=== PATIENT | female | born 1975 | race Caucasian/White ===

== ENCOUNTER 2025-03-02 05:15 | Observation (INO) | payer OTHER, SELFPAY ==
[2025-03-02] VITALS (26 sets, daily range): BP systolic 124–174; BP diastolic 78–106; PULSE 85–161; RESP 14–32; TEMP 36.6–37.1; O2SAT 92–99; BMI 23.6
--- NOTE | ~2025-03-02 | XR_ITS ---
EXAMINATION: XR chest 1V portable 03/02/2025 07:50 INDICATION: Cough PROCEDURE: AP portable chest COMPARISON: No prior studies for comparison. FINDINGS: The lungs are clear. The cardiomediastinal silhouette is within normal limits. There are no pleural effusions. There is no pneumothorax suspected. IMPRESSION: 1: NO ACUTE CARDIOPULMONARY DISEASE. Reviewed, dictated and finalized at location B.
--- NOTE | ~2025-03-02 | CT_ITS ---
CT HEAD NON-CONTRAST Clinical History: AMS Comparison: None Technique: Unenhanced axial images skull base to vertex Coronal, sagittal reformats CT images acquired with automatic exposure control for dose reduction DLP: 1286 mGy-cm Findings: Extensive motion/streak artifact. Sulci, ventricles: Unremarkable. No intracerebral hemorrhage. No evidence acute territorial infarct. No mass effect, midline shift. Bony calvarium intact. Visualized paranasal sinuses: Clear. Mastoid air cells: Clear. IMPRESSION: 1. No acute intracranial findings. Reviewed, dictated and finalized at location R.
--- NOTE | 2025-03-02 05:23 | ED.GENADULT ---
HPI - General Adult General Chief complaint: Unspecified Stated complaint: anxiety Source: family and EMS Mode of arrival: EMS History of Present Illness HPI narrative: This is a 50-year-old female with recent history of anxiety hypertension, CHF who presents to the ED for shortness of breath and shaking. Per EMS, they were called shortness of breath. On arrival, patient shaking and unable to speak. They were able to sales coach her tachypnea down to a normal rate. Her vitals were stable EN route. Patient reports that she felt fine when she went to sleep but woke with a headache and knew something was wrong.History otherwise limited at this time as patient is unable to speak clearly. Related Data Home Medications ?Medication ?Instructions ?Recorded ?Confirmed ?Last Taken ?Type aspirin 81 mg chewable tablet 1 tablet PO DAILY 03/02/25 03/02/25 Unknown History atorvastatin 80 mg tablet 80 mg PO HS 03/02/25 03/02/25 Unknown History carvedilol 6.25 mg tablet 6.25 mg PO BID 03/02/25 03/02/25 Unknown History empagliflozin 10 mg tablet 10 mg PO DAILY 03/02/25 03/02/25 Unknown History (Jardiance) escitalopram oxalate 10 mg tablet 10 mg PO DAILY 03/02/25 03/02/25 Unknown History folic acid 1 mg tablet 1 mg PO DAILY 03/02/25 03/02/25 Unknown History furosemide 40 mg tablet 40 mg PO DAILY 03/02/25 03/02/25 Unknown History losartan 50 mg tablet 50 mg PO DAILY 03/02/25 03/02/25 Unknown History metoprolol succinate 25 mg 25 mg PO DAILY 03/02/25 03/02/25 Unknown History tablet,extended release 24 hr spironolactone 25 mg tablet 25 mg PO DAILY 03/02/25 03/02/25 Unknown History thiamine mononitrate (vit B1) 100 100 mg PO DAILY 03/02/25 03/02/25 Unknown History mg tablet (Vitamin B-1 (mononitrate)) Allergies Allergy/AdvReac Type Severity Reaction Status Date / Time No Known Allergies Allergy Verified 03/02/25 09:26 Review of Systems Review of Systems: ROS unobtainable: Yes unobtainable due to medical condition PMFSH Past Medical History Medical History (Updated 03/02/25 @ 20:16 by Fei Romero MD) Hx of arterial ischemic stroke Alcoholism Depression Seizure at age 15yo Hyperlipidemia HTN (hypertension), benign CHF (congestive heart failure) Systolic CHF CAD (coronary artery disease) [place] in October 2024 Surgical History Surgical History (Updated 03/02/25 @ 15:16 by Orlin Jhaveri MD) H/O tubal ligation delivery delivered x3 Family History Family History (Updated 03/02/25 @ 15:16 by Orlin Jhaveri MD) Mother Cerebrovascular accident Social History Social History (Updated 03/02/25 @ 15:18 by Orlin Jhaveri MD) Social History: She smoked 1/2ppd x 30yrs but quit in 2023. No hx of drug use or IVDU. Occasional marijuana use i the past. Lives at home with her and 3 children. She has chickens, dogs and cats. Code status - full Surrogate decision maker - Maury (son) Smoking status: Never smoker Alcohol intake: former Substance use: never Lack of Transportation: No Lack of Food: Never True Current Housing: I Have Housing Concerned About Future Housing: No Difficulty Paying Gas/Electric Bills: No Difficulty Paying for Meds: No Currently Unemployed: No Education: High School Diploma/GED Difficulty w/ Childcare or Family Care: No Spiritual care concerns: No Exam Narrative: APPEARANCE: Mild distress, nontoxic, EYES: EOMI HEENT: Normocephalic, atraumatic, OMM RESPIRATORY: Tachypnea. Clear to auscultation bilaterally with no rhonchi wheezing or rales. CARDIOVASCULAR: Tachycardic with regular rhythm without murmurs rubs or gallops. ABDOMINAL: Soft, nontender, nondistended, no rebound or guarding MUSCULOSKELETAl: Moves all extremities. No clubbing, cyanosis or edema. NEURO: Awake and alert. Following commands, speech normal, no focal deficits. Rhythmic tremor to all extremities. Speaking in breathy sentences SKIN:: Warm, mildly diaphoretic. No rashes lesions or abrasions PSYCHIATRIC: Normal affect/mood, Course Vital Signs Vital signs: Vital Signs Temperature 98.2 F 03/02/25 05:13 Pulse Rate 128 H 03/02/25 05:13 Respiratory Rate 32 H 03/02/25 05:13 Blood Pressure 157/106 H 03/02/25 05:13 Pulse Oximetry 99 03/02/25 05:13 Oxygen Delivery Room Air 03/02/25 05:13 Temperature 98.4 F 03/02/25 20:00 Pulse Rate 91 03/02/25 20:00 Respiratory Rate 20 03/02/25 20:00 Blood Pressure 141/86 H 03/02/25 20:00 Pulse Oximetry 98 03/02/25 20:00 Oxygen Delivery Room Air 03/02/25 11:16 Medical Decision Making MDM Narrative Medical decision making narrative: 50-year-old female Presenting for shortness of breath and anxiety. On initial evaluation patient was lying in bed shaking with a rhythmic tremor, afebrile, tachycardic to the 120s to 130s but otherwise hemodynamically stable. Differentials include but are not limited to: ACS, anxiety, PE, hyperthyroidism, electrolyte abnormality, seizure, serotonin syndrome, NMS Notable exam findings: Rhythmic tremor. Somewhat rigid extremities but able to passively move with some resistance. Unable to assess reflexes. Nonfocal neuro exam. Notable lab findings: Anion gap 23. Creatinine slightly elevated at 1.13. Lactic acid 8.1. No leukocytosis. TSH wnl. Notable imaging findings: CT head without acute findings. Patient was given 5 mg of Valium with slight improvement of her the tremors and heart rate. This was subsequently re-dosed with improvement of her heart rate to the low 100s and near resolution of the tremors. She also had improved ability to communicate. Given no other lab or imaging findings, I do suspect the patient is suffering from serotonin syndrome. Patient did begin to have tremors again so she was given additional dose of Valium. Patient will require admission for further evaluation and management. Case was discussed with hospitalist, recommends adding chest x-ray and blood cultures to rule out sepsis given the lactic acidosis, will otherwise except the patient to IMU. Medical Records Medical records reviewed: Yes I reviewed the external patient's medical records. Vital Signs Vital Signs: Vital Signs Temperature 98.2 F 03/02/25 05:13 Pulse Rate 128 H 03/02/25 05:13 Respiratory Rate 32 H 03/02/25 05:13 Blood Pressure 157/106 H 03/02/25 05:13 Pulse Oximetry 99 03/02/25 05:13 Oxygen Delivery Room Air 03/02/25 05:13 Temperature 98.4 F 03/02/25 20:00 Pulse Rate 91 03/02/25 20:00 Respiratory Rate 20 03/02/25 20:00 Blood Pressure 141/86 H 03/02/25 20:00 Pulse Oximetry 98 03/02/25 20:00 Oxygen Delivery Room Air 03/02/25 11:16 Lab Data Lab results reviewed: Yes I reviewed the patient's lab results. 03/02/25 05:29 03/02/25 05:29 Labs: Lab Results 03/02/25 03/02/25 03/02/25 Range/Units 05:29 05:29 06:04 WBC 6.9 (4.5-10.0) K/mm3 RBC 4.13 L (4.2-5.4) M/mm3 Hgb 12.3 (12.0-15.0) g/dL Hct 38.3 (37.0-47.0) % MCV 92.7 (80-100) fl MCH 29.8 (26-34) pg MCHC 32.1 (32-36) g/dl RDW 16.1 H (11.5-14.5) % Plt Count 356 (150-375) k/mm3 MPV 8.4 (7.4-10.4) fl Immature Gran % (Auto) 0.1 (0-0.5) % Neut % (Auto) 51.3 (45.5-73.1) % Lymph % (Auto) 33.9 (18.3-44.2) % [place] % (Auto) 11.3 H (2.6-8.5) % Eos % (Auto) 3.0 (0-4.4) % Baso % (Auto) 0.4 (0.2-1.2) % Lymph # (Auto) 2.35 (0.9-3.2) K/mm3 [place] # (Auto) 0.8 H (0.1-0.6) K/mm3 Eos # (Auto) 0.2 (0-0.3) K/mm3 Baso # (Auto) 0.0 (0.0-0.1) K/mm3 Abs Immat Gran (auto) 0.01 (0.00-0.031) K/mm3 Absolute Neuts (auto) 3.6 (1.3-6.7) K/mm3 Absolute Nucleated RBC 0.000 (0.0-0.012) K/mm3 Nucleated RBC % 0.0 (0.0-0.2) % D-Dimer 0.35 (<0.48) ug/mL Sodium 139 (137-145) mmol/L Potassium 3.3 L (3.4-5.0) mmol/L Chloride 95 L (98-107) mmol/L Carbon Dioxide 21 L (22-30) mmol/L Anion Gap 23 H (4-12) mmol/L BUN 10 (7-17) mg/dL Creatinine 1.13 H (0.7-1.0) mg/dL Estim Creat Clear Calc 43 ml/min Estimated GFR 51 L (59 - ) Glucose 104 (65-110) mg/dL Lactic Acid (0.7-2.0) mmol/L Calcium 9.1 (8.4-10.2) mg/dL Total Bilirubin 0.4 (0.2-1.3) mg/dL AST 41 H (14-36) U/L ALT 28 (6-35) U/L Alkaline Phosphatase 86 (38-126) U/L Total Creatine Kinase 387 H (30-135) U/L Troponin I < 0.012 Cancelled (0.000-0.034) ng/mL NT-Pro-B Natriuret Pep 135 H (19.9-100) pg/mL Total Protein 8.7 H (6.3-8.2) g/dL Albumin 5.0 (3.5-5.1) g/dL TSH 4.050 (0.465-4.680) uIU/mL Serum HCG, Qual Negative 03/02/25 Range/Units 06:09 WBC (4.5-10.0) K/mm3 RBC (4.2-5.4) M/mm3 Hgb (12.0-15.0) g/dL Hct (37.0-47.0) % MCV (80-100) fl MCH (26-34) pg MCHC (32-36) g/dl RDW (11.5-14.5) % Plt Count (150-375) k/mm3 MPV (7.4-10.4) fl Immature Gran % (Auto) (0-0.5) % Neut % (Auto) (45.5-73.1) % Lymph % (Auto) (18.3-44.2) % [place] % (Auto) (2.6-8.5) % Eos % (Auto) (0-4.4) % Baso % (Auto) (0.2-1.2) % Lymph # (Auto) (0.9-3.2) K/mm3 [place] # (Auto) (0.1-0.6) K/mm3 Eos # (Auto) (0-0.3) K/mm3 Baso # (Auto) (0.0-0.1) K/mm3 Abs Immat Gran (auto) (0.00-0.031) K/mm3 Absolute Neuts (auto) (1.3-6.7) K/mm3 Absolute Nucleated RBC (0.0-0.012) K/mm3 Nucleated RBC % (0.0-0.2) % D-Dimer (<0.48) ug/mL Sodium (137-145) mmol/L Potassium (3.4-5.0) mmol/L Chloride (98-107) mmol/L Carbon Dioxide (22-30) mmol/L Anion Gap (4-12) mmol/L BUN (7-17) mg/dL Creatinine (0.7-1.0) mg/dL Estim Creat Clear Calc ml/min Estimated GFR (59 - ) Glucose (65-110) mg/dL Lactic Acid 8.1 H* (0.7-2.0) mmol/L Calcium (8.4-10.2) mg/dL Total Bilirubin (0.2-1.3) mg/dL AST (14-36) U/L ALT (6-35) U/L Alkaline Phosphatase (38-126) U/L Total Creatine Kinase (30-135) U/L Troponin I (0.000-0.034) ng/mL NT-Pro-B Natriuret Pep (19.9-100) pg/mL Total Protein (6.3-8.2) g/dL Albumin (3.5-5.1) g/dL TSH (0.465-4.680) uIU/mL Serum HCG, Qual Imaging Data Attestation: I personally reviewed and interpreted this imaging study as follows: My impression: CT head: No intracranial bleeds, no masses. ECG Data EKG #1: Attestation: I personally reviewed and interpreted this ECG as follows: ECG completion date: 03/02/25 ECG completion time: 05:55 Prior ECG tracings: not available for review Interpretation: Sinus tachycardia rate of 129, left axis deviation, normal intervals, left anterior fascicular block, no acute ST or T-wave changes Discharge Plan Discharge Clinical Impression: Tremor, Acidosis, lactic Patient Disposition: Still a Patient Condition: Stable
--- NOTE | 2025-03-02 05:24 | ECG_ITS ---
Test Date: 2025-03-02 05:55:15 Measurements Intervals [place] Rate: 129 P: 73 [place]: 140 QRS: -74 QRSD: 83 T: 82 QT: 313 QTc: 459 Interpretive Statements SINUS TACHYCARDIA CONSIDER RIGHT VENTRICULAR CONDUCTION DELAY LEFT ANTERIOR FASCICULAR BLOCK BORDERLINE ST-T WAVE ABNORMALITY- HIGH LATERAL LEADS BASELINE ARTIFACT- I, II, III, AVR, AVL, AVF, V1-V6 ABNORMAL ECG No previous ECG available for comparison Electronically Signed On 03-02-2025 06:16:34 CDT by Alex Arias D.O.
[2025-03-02] MEDS: diazePAM INJ (*CRX) 10 MG/2 ML SYRINGE 5 MG IV PUSH ×3 (05:27→07:10)
--- NOTE | 2025-03-02 05:33 | PC.NURSE ---
Patient taken to CT while on monitor at this time.
[2025-03-02 05:37] LABS: Hematocrit 38.3 % (37.0-47.0); Hemoglobin 12.3 g/dL (12.0-15.0); Immature Granulocyte Percent A 0.1 % (0-0.5); Lymphocytes Absolute Auto 2.35 K/mm3 (0.9-3.2); Mean Corpuscular HGB Conc 32.1 g/dl (32-36); Mean Corpuscular Hemoglobin 29.8 pg (26-34); Mean Corpuscular Volume 92.7 fl (80-100); Nucleated Red Blood Cells Absolute Auto 0.000 K/mm3 (0.0-0.012); Nucleated Red Blood Cells Perc 0.0 % (0.0-0.2); Platelet Count Result 356 k/mm3 (150-375); Red Blood Count 4.13 M/mm3 (4.2-5.4); White Blood Count 6.9 K/mm3 (4.5-10.0)
[2025-03-02 05:47] LABS: SPREG INTERNAL CONTROL Positive; Serum Qual hCG Negative
[2025-03-02 05:54] LABS: Alanine Aminotransferase 28 U/L (6-35); Albumin Level 5.0 g/dL (3.5-5.1); Alkaline Phosphatase 86 U/L (38-126); Anion Gap 23 mmol/L (4-12); Aspartate Amino Transferase 41 U/L (14-36); Bilirubin,Total 0.4 mg/dL (0.2-1.3); Blood Urea Nitrogen 10 mg/dL (7-17); Calcium 9.1 mg/dL (8.4-10.2); Carbon Dioxide 21 mmol/L (22-30); Chloride 95 mmol/L (98-107); Estimated CRCL calculation 43 ml/min; Estimated Glomerular Filt Rate 51; Glucose 104 mg/dL (65-110); Potassium 3.3 mmol/L (3.4-5.0); Sodium 139 mmol/L (137-145); Total Protein 8.7 g/dL (6.3-8.2)
[2025-03-02 06:01] LABS: NT Pro B Type Natriuretic Pept 135 pg/mL (19.9-100); Troponin I < 0.012 ng/mL (0.000-0.034)
[2025-03-02] MEDS: SODIUM CHLORIDE 0.9% IV 1,000 ML 999 ML IV CONT ×2 (06:04→06:58)
--- NOTE | 2025-03-02 06:11 | PC.NURSE ---
Patient informed of need for urine sample, patient nods her head in understanding. Patient refused straight cath at this time.
[2025-03-02 06:22] LABS: Creatine Kinase 387 U/L (30-135)
--- NOTE | 2025-03-02 06:36 | PC.NURSE ---
Patients shaking has resolved, VS within normal limits.
[2025-03-02 06:55] LABS: Thyroid Stimulating Hormone 4.050 uIU/mL (0.465-4.680)
--- NOTE | 2025-03-02 08:39 | PC.NURSE ---
report was called to Jimi OWUSU in the IMU at [phone]
--- NOTE | 2025-03-02 08:45 | PM.IMHP ---
H&P: HPI History of Present Illness Date/Time: 03/02/25 08:45 Chief Complaint: Anxiety Narrative: 50yo female with CAD, CHF and depression here for anxiety symptoms. Patient was well unil earlier this year when she had an acute MD in October. She was hospitalized at [facility] in [facility]. Left heart catheterization performed but no stents placed. She was hospitalized a short time later and found to have cardiomyopathy with EF 14%. With appropriate treatment, she states the EF has improved to 30%. She was hospitalized a 3rd time in November for stroke-like symptoms and received TNK. A short time later, she was hospitalized a 4th time in December for what sounds like alcoholism. Her family had to pick her up at work since she was intoxicated. She states she has been sober since then (Later, once family had left the room, the patient does admit to drinking about 2 shots of alcohol per day currently). She did go to [place] for a 2nd evaluation of her heart condition and HTN. Medications were adjusted and since December, her BP runs 110/80 range and she has not been hospitalized since December. She was well until about 2-3am this morning when she awoke and felt anxious and was 'vibrating inside'. She felt dizzy and SOB. Never had this before. She had a possible seizure at age 15yo but nothing since. She recently has flu-like symptoms about 4 days prior to admission with subjective fevers, shakes, headache, nausea, vomiting and diarrhea. No sick contacts. She has not had COVID or flu vaccine. She took a whole bottle of Nyquil about 3 days ago but nothing since. No other [id number] medications that she can recall. She was on escitalopram but this was changed to Paxil in December. No recent medication changes. No suicidal or homicidal ideation. She denies that she overdosed on Paxil or other medications. Never been hospitalized for psychiatric issues. No chest pain or palpitations. No pedal edema. No cough. No further nausea, vomiting or diarrhea. No dysuria or hematuira. Her symptoms worsened with her arms and legs shaking uncontrollably with feeling of 'electric shock' in her hands/feet. She was hyperventilating per family. She was brought to the ED for evaluation In the ED, she was hypertensive at 157/106 that normalized quickly and tachycardia to 161 that also normalized. She was not febrile or hypoxic. CBC was normal. Potassium was 3.3, bicarb 21 with anion gap of 23. BUN normal but Cr slightly elevated at 1.13 (eGFR 51). AST 41 and total CK was 387. Lactic 8.1. Repeat pending. test negative. TSH normal. No UDS or UA yet. Head CT showing no acute findings. CXR was clear. EKG showing sinus tachycardia, LAFB and borderline ST-T wave changes in the high lateral leads. She was given IV fluid bolus x2. Also given valium 5mg x3 over about 90 minutes. She was admitted for further care Review of Systems Review of Systems: All systems reviewed & are unremarkable except as noted in HPI and below PMFSH Past Medical History Medical History (Updated 03/02/25 @ 15:16 by Orlin Jhaveri MD) Hx of arterial ischemic stroke Alcoholism Depression Seizure at age 15yo Hyperlipidemia HTN (hypertension), benign CHF (congestive heart failure) Systolic CHF CAD (coronary artery disease) [place] in October 2024 Surgical History Surgical History (Updated 03/02/25 @ 15:16 by Orlin Jhaveri MD) H/O tubal ligation delivery delivered x3 Family History Family History (Updated 03/02/25 @ 15:16 by Orlin Jhaveri MD) Mother Cerebrovascular accident Social History Social History (Updated 03/02/25 @ 15:18 by Orlin Jhaveri MD) Social History: She smoked 1/2ppd x 30yrs but quit in 2023. No hx of drug use or IVDU. Occasional marijuana use i the past. Lives at home with her and 3 children. She has chickens, dogs and cats. Code status - full Surrogate decision maker - Maury (son) Smoking status: Never smoker Alcohol intake: former Substance use: never Lack of Transportation: No Lack of Food: Never True Current Housing: I Have Housing Concerned About Future Housing: No Difficulty Paying Gas/Electric Bills: No Difficulty Paying for Meds: No Currently Unemployed: No Education: High School Diploma/GED Difficulty w/ Childcare or Family Care: No Spiritual care concerns: No Meds Home Medications and Allergies Home Medications ?Medication ?Instructions ?Recorded ?Confirmed ?Type aspirin 81 mg chewable tablet 1 tablet PO DAILY 03/02/25 03/02/25 History atorvastatin 80 mg tablet 80 mg PO HS 03/02/25 03/02/25 History carvedilol 6.25 mg tablet 6.25 mg PO BID 03/02/25 03/02/25 History empagliflozin 10 mg tablet 10 mg PO DAILY 03/02/25 03/02/25 History (Jardiance) escitalopram oxalate 10 mg tablet 10 mg PO DAILY 03/02/25 03/02/25 History folic acid 1 mg tablet 1 mg PO DAILY 03/02/25 03/02/25 History furosemide 40 mg tablet 40 mg PO DAILY 03/02/25 03/02/25 History losartan 50 mg tablet 50 mg PO DAILY 03/02/25 03/02/25 History metoprolol succinate 25 mg 25 mg PO DAILY 03/02/25 03/02/25 History tablet,extended release 24 hr spironolactone 25 mg tablet 25 mg PO DAILY 03/02/25 03/02/25 History thiamine mononitrate (vit B1) 100 100 mg PO DAILY 03/02/25 03/02/25 History mg tablet (Vitamin B-1 (mononitrate)) Allergies Allergy/AdvReac Type Severity Reaction Status Date / Time No Known Allergies Allergy Verified 03/02/25 09:26 Vital Signs Vital Signs - 24 hr 03/02/25 05:13 03/02/25 05:22 03/02/25 05:22 Temperature 98.2 F Pulse Rate 128 H 135 H Respiratory Rate 32 H Blood Pressure 157/106 H Pulse Oximetry 99 99 Oxygen Delivery Room Air 03/02/25 05:50 03/02/25 06:00 03/02/25 06:15 Temperature 98.7 F Pulse Rate 161 H 122 H Respiratory Rate 30 H 27 H Blood Pressure Pulse Oximetry 92 98 Oxygen Delivery 03/02/25 06:23 03/02/25 06:36 Temperature Pulse Rate 112 H 98 Respiratory Rate 16 16 Blood Pressure 124/86 124/86 Pulse Oximetry 97 97 Oxygen Delivery Exam Narrative: AF 98.7 134/78 98 18 97% ra Gen - well appearing female in no acute respiratory distress who is nontoxic-appearing lying semi recumbent in bed HEENT - normocephalic. Atraumatic. Pupils equal round and reactive. Extraocular motions intact with dysconjugate gaze left upper outer gaze. Sclera clear and anicteric. Nares patent. Oropharynx was clear. No oral lesions. Moist mucous membranes. Tongue was midline. Palate saul symmetrically. No facial asymmetry. Neck - neck was supple. No dominant adenopathy, thyromegaly or masses. 2+ carotid upstrokes without bruits. Chest - lungs are clear to auscultation bilaterally. No wheezes or crackles. Breast exam was deferred. CV - heart was regular rate and rhythm. S1-S2. No murmurs gallops or rubs. Abd - abdomen was soft. Nontender. Nondistended. Positive bowel sounds. No organomegaly or masses. Ext - no clubbing, cyanosis or edema. 2+ DP pulses bilaterally. Neuro - patient is alert and oriented x4. Strength is 5/5 in both upper and lower extremities. Cranial nerves 2-12 are intact. Speech is clear. Psych - normal mood and affect. Patient is pleasant and cooperative. Skin - warm and dry. No rashes noted. H&P: Results Labs Labs: Short CBC 03/02/25 Range/Units 05:29 WBC 6.9 (4.5-10.0) K/mm3 Hgb 12.3 (12.0-15.0) g/dL Hct 38.3 (37.0-47.0) % Plt Count 356 (150-375) k/mm3 BMP 03/02/25 05:29 Sodium 139 Potassium 3.3 L Chloride 95 L Carbon Dioxide 21 L BUN 10 Creatinine 1.13 H Glucose 104 Calcium 9.1 Cardiac Enzymes 03/02/25 03/02/25 Range/Units 05:29 05:29 Total Creatine Kinase 387 H (30-135) U/L Troponin I < 0.012 Cancelled (0.000-0.034) ng/mL Liver Function 03/02/25 Range/Units 05:29 Total Bilirubin 0.4 (0.2-1.3) mg/dL AST 41 H (14-36) U/L ALT 28 (6-35) U/L Alkaline Phosphatase 86 (38-126) U/L Albumin 5.0 (3.5-5.1) g/dL Assessment and Plan Assessment and plan (1) Anxiety: Code(s): F41.9 - Anxiety disorder, unspecified Status: Acute Assessment and Plan: Patient awoke with feeling anxious. Lab work showing elevated lactic acid but normal on repeat. SOme of her symptoms are related to her hyperventilation. CT head showing acute findings. CXR clear. UA not consistent with UTI. UDS positive for benzodiazepines but she received this in the ED. Denies intentional/unintentional drug overdose. Consider panic attack. Consider serotonin syndrome but felt less likely. Consider related to alcohol withdrawal. Consider occult seizure. Consider salicylate overdose with anion gap. Sepsis unlikely as well. Neuro consult. Check salicylate, acetaminophen and alcohol levels. [place] protocol. Start thiamine and folate. She was educated about the benefits of abstaining from alcohol. Care cooridnation consult (2) Alcoholism: Code(s): F10.20 - Alcohol dependence, uncomplicated Status: Acute Assessment and Plan: As above (3) CHF (congestive heart failure): Code(s): I50.9 - Heart failure, unspecified Status: Acute Assessment and Plan: Sounds like she had an MD then developed CHF. Could be ischemic related or possibly related to alcoholism. EF did improve per patient's hx. Patietn euvolemic Obtain old records Continue Coreg, Losartan, Spironolactone, Lasix, empagliflozin (she is not metoprolol) (4) Depression: Code(s): F32.A - Depression, unspecified Status: Acute Assessment and Plan: Mood stable. [place] unlikely serotonin syndrom but will hold escitalopram to be cautious and discuss with neuro. (5) HTN (hypertension), benign: Code(s): I10 - Essential (primary) hypertension Status: Acute Assessment and Plan: BP was elevated on admission. She states she is compliant with her home medications. Resume home meds and follow (6) CAD (coronary artery disease): Code(s): I25.10 - Atherosclerotic heart disease of [place] coronary artery without angina pectoris Status: Acute Assessment and Plan: Stable. No chest pain Resume ASA and Lipitor. Plan DVT prophylaxis - SCDs Code status - full Hospitalist MIPS Advance Care Plan I have confirmed that the patient's Advanced Care Plan is present, code status is documented, or surrogate decision maker is listed in patient medical record.: Yes Medication Reconciliation I have utilized all available resources to obtain, update and review the patients current medications (includes all prescriptions, OTC, herbals, cannabis, and nutritional supplements).: Yes
--- NOTE | 2025-03-02 09:23 | ADMGEN ---
This patient, Alma Strauss, was admitted to IMU Room 206-02. Patient/family oriented to hospital policies and general routines including ID bracelet, bed and alarms, visiting hours, pain management, procedures, bathroom and other care routines, personal items, smoking policy, room service/diet, and visiting hours. Information on how to activate the Rapid Response Team has been discussed. Patient/Family are encouraged to report perceived risks to care and to ask questions if they do not understand what they are told or what they should do.
[2025-03-02 09:50] LABS: Free T4 Free Thyroxine 1.14 ng/dL (0.78-2.19)
[2025-03-02 11:53] LABS: Add Urine Microscopic? YES; Appearance Urine Clear (Clear); Glucose Urine UA Negative (Negative); Leukocyte Esterase Ur Negative LEU/UL (Negative); Need Manual Microscopic Reviewed; Nitrate Urine Negative (Negative); Specific Grav Ur 1.018 (1.001-1.035)
[2025-03-02 12:04] LABS: Cannabinoid Screen Urine Negative (Negative)
[2025-03-02 16:26] LABS: Acetaminophen < 10 ug/mL (10-30); Salicylate < 1.0 mg/dL (2-20)
[2025-03-02] MEDS: ASPIRIN 81 MG CHEWABLE TABLET PO (16:27)
[2025-03-02] MEDS: FOLIC ACID 1 MG TABLET PO (16:28)
[2025-03-02] MEDS: LOSARTAN POTASSIUM 50 MG TABLET PO (16:28)
[2025-03-02] MEDS: LORazepam (*CRX) 1 MG TABLET 2 MG PO (16:28)
--- OUTSIDE RECORDS SUMMARY | 2025-03-02 17:06 | XMS_ITS | Encounter Summary ---
Author Organization [facility] Address [facility] [place] [address] Care Team Providers Care Pediatric Cns Name Role Phone Todd Hernandez MD Primary Care Provider Reason for Visit * Reason Onset Date Comments Appointment Request 02/09/2025 Encounter Details Date Type Department Care Team ([facility] st Contact Info) Description 02/09/2025 Results Follow-Up [address] [address] Swati Rose RN CLINIC - OUTPATIENT EVENT RECORDER (ECG) UP TO 30 DAYS COMPLETE (Holter) Social History Tobacco Use Types Packs/Day Years Used Date Smoking Tobacco: Former Cigarettes 0.3 10 Smokeless Tobacco: Never Alcohol Use Standard Drinks/Week Comments Yes 35 (1 standard drink = 0.6 oz pu re alcohol) B1300 Health Literacy Answer Date Recor ded How often do you need to hav e someone help you when you read instructions, pamphlets, or other written material from your doctor or pharmacy? Never 11/30/2024 [facility] Utilities Answer Date Recorded In the past 12 months has e [employer], gas, oil, or water company threatened to shut off services in your home? No 11/30/2024 Humiliation, Afraid, Rape, and Kick questionnair e Answer Date Recorded Within the last year, have y ou been afraid of your partner or ex-partner? No 11/30/2024 Within the last year, have y ou been humiliated or emotionally abused in other ways by your partner or ex-partner? No Within the last year, have y ou been kicked, hit, slapped, or otherwise physically hurt by your partner or ex-partner? No 11/30/2024 Within the last year, have y ou been raped or forced to have any kind of sexual activity by your partner or ex-partner? No 11/30/2024 Social Connection and Isolation Panel Answer Date Recorded In a typical week, how many times do you talk on the phone with family, friends, or neighbors? More than three times a week 11/30/2024 How often do you get togethe r with friends or relatives? Once a week 11/30/2024 How often do you attend chur or druze services? Never 11/30/2024 Do you belong to any clubs o r organizations such as catholic groups, unions, fraternal or athletic groups, or school groups? No 11/30/2024 How often do you attend meet ings of the clubs or organizations you belong to? Never 11/30/2024 Are you , , di vorced, , never , or living with a partner? 11/30/2024 AUDIT-C Answer Date Recorded Q1: How often do you have a drink containing alcohol? 4 or more times a week 11/30/2024 Q2: How many drinks containi ng alcohol do you have on a typical day when you are drinking? 3 or 4 Q3: How often do you have si x or more drinks on one occasion? Less than monthly 11/30/2024 Overall Financial Resource Strain (CARDIA) Answe r Date Recorded How hard is it for you to pa y for the very basics like food, housing, medical care, and heating? Somewhat hard 11/30/2024 PHQ-2 Answer Date Recorded Patient Health Questionnaire-2 Score 0 11/30/2024 [facility] Occup[facility] - Occupational Stress Questionnaire Answer Date Recorded Do you feel stress - tense, restless, nervous, or anxious, or unable to sleep at night because your mind is troubled all the time - these days? Very much 11/30/2024 Exercise Vital Sign Answer Date Recorde d On average, how many days pe r week do you engage in moderate to strenuous exercise (like a brisk walk)? 6 days 11/30/2024 On average, how many minutes do you engage in exercise at this level? 150+ min 11/30/2024 Hunger Vital Sign Answer Date Recorded Within the past 12 months, y ou worried that your food would run out before you got the money to buy more. Never true 12/01/19 25 Within the past 12 months, t he food you bought just didn't last and you didn't have money to get more. Never true 11/30/2024 PRAPARE - Transportation Answer Date Re corded In the past 12 months, has l ack of transportation kept you from medical appointments or from getting medications? No 11/05 In the past 12 months, has l ack of transportation kept you from meetings, work, or from getting things needed for daily living? No 11/30/2024 Housing Stability Vital Sign Answer Omer e Recorded In the last 12 months, was t here a time when you were not able to pay the mortgage or rent on time? No 11/30/2024 In the past 12 months, how m any times have you moved where you were living? 0 11/30/2024 At any time in the past 12 m [facility], were you homeless or living in a alf (including now)? No 11/30/2024 Comments No Sex and Gender Information Value Date Recorded Sex Assigned at Female 10/16/2024 12:54 PM CDT Legal Sex Female 11:01 AM CDT Gender Identity Not on file Sexual Orientation Not on file documented as of this encounter Functional Status * Are you deaf or do you have serious difficulty hearing Answer Date of Assessment Author Status No 11/30/2024 9:44 PM MAHAMEDT Brooke Li RN Active * Are you blind or do you have serious difficulty seeing, even when wearing glasses? Answer Date of Assessment Author Status No 11/30/2024 9:44 PM MAHAMEDT Brooke Li RN Active * Do you have serious difficulty walking or climbing stairs? Answer Date of Assessment Author Status No 11/30/2024 9:44 PM Brooke Steele RN Active * Do you have difficulty dressing or bathing? Answer Date of Assessment Author Status No 11/30/2024 9:44 PM CDT Brooke Li RN Active * Because of a physical, mental, or emotional condition, do you have difficulty doing errands alone such as visiting a doctor's office or shopping? Answer Date of Assessment Author Status No 11/30/2024 9:44 PM CDT Brooke Li RN Active documented as of this encounter Mental Status * Because of a physical, mental, or emotional condition, do you have serious difficulty concentrating, remembering, or making decisions? Answer Entry Date Author Status No 11/30/2024 9:44 PM CDT Brooke Li RN Active documented in this encounter Progress Notes * RABIA Salmeron - 02/27/2025 4:05 PM CDT LEFT MESSAGE REQUESTING RETURN CALL FOR HOSP FU APPT documented in this encounter Plan of Treatment Not on file documented as of this encounter Goals Goal Patient Goal Type Associated Problems Recent Progress Patient-Stated? Author Health - patient able to perform ADLs independently Lifestyle No Nitesh Kraft RN documented as of this encounter Visit Diagnoses Not on filedocumented in this encounter Care Teams Pediatric Cns Relationship Specialty Start Date End Date Todd Hernandez MD [facility] [place] [address] PCP - General INTERNAL MEDICINE 10/24/24 documented as of this encounter
--- OUTSIDE RECORDS SUMMARY | 2025-03-02 17:06 | XMS_ITS | Clinical Summary ---
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 30 tablet 10/22/2024 Active vitamin B-1 (THIAMINE) 100 MG tablet Take 1 tablet (100 mg total) by mouth daily. 30 tablet 10/22/2024 Active aspirin 81 MG chewable tablet Chew 1 tablet (81 mg total) by mouth daily. 30 tablet 10/21/2024 Active escitalopram (LEXAPRO) 10 MG tablet Take 1 tablet (10 mg total) by mouth nightly at bedtime. 30 tablet 12/03/2024 Active hydrOXYzine (VISTARIL) 25 MG capsule Take 1 capsule (25 mg total) by mouth daily as needed for Itching. 30 capsule 1 12/03/2024 Active atorvastatin (LIPITOR) 80 MG tablet Take 1 tablet (80 mg total) by mouth nightly at bedtime. 90 tablet 12/26/2024 Active furosemide (LASIX) 40 MG tablet Take 1 tablet (40 mg total) by mouth every morning. 90 tablet 12/26/2024 Active losartan (COZAAR) 25 MG tablet Take 0.5 tablets (12.5 mg total) by mouth daily. 45 tablet 12/26/2024 Active metoprolol succinate ER (TOPROL-XL) 25 MG 24 hr tablet Take 0.5 tablets (12.5 mg total) by mouth daily. 45 tablet 12/26/2024 Active spironolactone (ALDACTONE) 25 MG tablet Take 0.5 tablets (12.5 mg total) by mouth daily. 45 tablet 12/26/2024 Active Active Problems Problem Noted Date Diagnosed Date CVA (cerebral vascular accident) 11/30/2024 Shortness of breath 10/16/2024 Encounters Date Type Department Care Team Description 02/09/2025 Results Follow-Up [facility], [facility] [address] [place] [address] Swati Rose RN CLINIC - OUTPATIENT EVENT RECORDER (ECG) UP TO 30 DAYS COMPLETE (Holter) 01/23/2025 Orders Only [facility], [address] [id number] Nova Carroll MA 01/13/2025 Scan [facility], [address] [id number] Scanned, Doc Pccl 12/23/2024 Telephone [facility] - [address], [address] [place] [id number] Shanell Orlando MD Advice (Nurse Triage - After Hours ([id number])/); Appointment Request; Concerns 12/22/2024 Telephone [facility], [facility] [address] [place], [place] [id number] Grace Valles FNP Concerns; Medication 12/17/2024 Scan [facility], [address] [id number] Scanned, Doc Pccl 12/10/2024 Scan [facility], [facility] [address] [place] [address] Scanned, Doc Pccl 12/09/2024 10:45 AM CDT Telephone [facility], [address] [address] Wilfredo Ray MD Holter Monitor 12/02/2024 Telephone [facility], [address] [address] Wilfredo Ray MD Schedule Test 12/01/2024 Telephone [facility], [address] [address] Wilfredo Ray MD Advice (Nurse Triage - After Hours ([id number])/) 11/30/2024 4:39 PM CDT - 12/03/2024 1:14 PM CDT Hospital Encounter [facility] [place] [address] Elinor Castellon MD Malcolm, MD Dalton Bell, MD Yung Pemberton, MD Rupesh Numbness Discharge Disposition: Home or Self Care (Routine Discharge) 11/30/2024 Travel from Last 3 Months Social History Tobacco Use Types Packs/Day Years Used Date Smoking Tobacco: Former Cigarettes 0.3 10 Smokeless Tobacco: Never Tobacco Cessation:Counseling Given: Not Answered Alcohol Use Standard Drinks/Week Comments Yes 35 (1 standard drink = 0.6 oz pu re alcohol) B1300 Health Literacy Answer Date Recor ded How often do you need to hav e someone help you when you read instructions, pamphlets, or other written material from your doctor or pharmacy? Never 11/30/2024 [facility] Utilities Answer Date Recorded In the past 12 months has e [employer], gas, oil, or water Works[employer] threatened to shut off services in your [...] 11/30/2024 How often do you attend chur ch or taoist services? Never 11/30/2024 Do you belong to any clubs o r organizations such as taoist groups, unions, fraternal or athletic groups, or [...] Recorded Patient Health Questionnaire-2 Score 0 11/30/2024 [facility] Occupat ional Health - Occupational Stress [...] any time in the past 12 m [facility], were you homeless or living in a half-way (including now)? No 11/30/2024 Comments No Sex and Gender Information Value Date Recorded Sex Assigned at Female 10/16/2024 12:54 PM CDT Legal Sex Female 11:01 AM CDT Gender Identity Not on file Sexual Orientation Not on file Last Filed Vital Signs Vital Sign Reading Time Taken Comments Blood Pressure 138/97 12/03/2024 8:12 AM CDT Pulse 97 12/03/2024 8:12 AM CDT Temperature 36.8 C (98.2 F) 12/03/2024 8:12 AM CDT Respiratory Rate 21 12/03/2024 8:12 AM CDT Oxygen Saturation 98% 12/03/2024 8:12 AM CDT Inhaled Oxygen Concentration - - Weight 58 kg (127 lb 13.9 oz) 12/03/2024 4:05 AM CDT Height 157.5 cm (5' 2) 11/30/2024 5:14 PM CDT Body Mass Index 23.39 11/30/2024 5:14 PM CDT Plan of Treatment Health Maintenance Due Date Last Done Comments Cervical Cancer Screening Pa p Smear (Age 30 to 64) Every 3 Years 1977 Colorectal Cancer Screening Colonoscopy (10 Years) 1975 Annual Physical 01/22/1980 Hepatitis C 1995 DTaP, Tdap and Td Vaccines ( 1 - Tdap) 01/22/1996 Hepatitis B Vaccines (1 of 3 - 19+ 3-dose series) 01/22/1996 Pneumococcal Vaccine: Pediat rics (0 to 5 Years) and At-Risk Patients (6 to 49 Years) (1 of 2 - PCV) 01/22/1996 Cervical Cancer Screening Pa p with HPV Testing (Age 30 to 64) Every 5 Years 2007 Cervical Cancer Screening with HPV 2007 Mammogram Screening 2017 COVID-19 Vaccine (2024-2 6 season) 2025 Influenza Adult (#1) 2025 PHQ-2 (Physician [place]) Completed 11/30/2024 Hepatitis A Vaccines Aged Out No long er eligible based on patient's age to complete this topic Meningococcal B Vaccine Aged Out No l onger eligible based on patient's age to complete this topic Meningococcal Vaccine Aged Out No elliot ally eligible based on patient's age to complete this topic RSV Immunizations Under 20 Months Aged Out No longer eligible based on patient's age to complete this topic Goals Goal Patient Goal Type Associated Problems Recent Progress Patient-Stated? 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 Procedure Name Priority Date/Time Associated Diagnosis Comments EVENT RECORDER (ECG) UP TO 30 DAYS COMPLETE Routine 02/06/2025 2:22 PM CDT TIA (transient ischemic attack) MAGNESIUM Routine 12/02/2024 4:27 AM CDT COMPREHENSIVE METABOLIC PANEL Routine 12/02/2024 4:27 AM CDT CBC W/DIFF AUTOMATED Routine 12/02/2024 4:[address] HEAD WO CON TIMED 12/01/2024 5:09 PM CDT USE ECHO 2D FU LTD W CON Today 12/01/2024 11:08 AM CDT MRI BRAIN WO CON STAT 12/01/2024 8:05 AM CDT LIPID PANEL Routine 12/01/2024 4:37 AM CDT COMPREHENSIVE METABOLIC PANEL Routine 12/01/2024 4:37 AM CDT PARTIAL THROMBOPLASTIN TIME,PTT Routine 12/01/2024 4:37 AM CDT PROTHROMBIN TIME, VENOUS Routine 12/01/2024 4:37 AM CDT CBC W/DIFF AUTOMATED Routine 12/01/2024 4:37 AM CDT DRUG SCREEN RAPID STAT 12/01/2024 12: 10 AM CDT XR CHEST PORTABLE Routine 11/30/2024 11: 15 PM CDT MRSA SCREENING Routine 11/30/2024 8:52 PM CDT ECG 12-LEAD STAT 11/30/2024 6:27 PM CDT CTA HEAD+NECK STAT 11/30/2024 5:[address] STROKE(HEAD WO) STAT 11/30/2024 5: 00 PM CDT MAGNESIUM Routine 11/30/2024 4:44 PM CDT ETHANOL STAT 11/30/2024 4:44 PM CDT TROPONIN, QUANT STAT 11/30/2024 4:44 PM CDT COMPREHENSIVE METABOLIC PANEL STAT 11/30/2024 4:44 PM CDT PARTIAL THROMBOPLASTIN TIME,PTT STAT 11/30/2024 4:44 PM CDT PROTHROMBIN TIME, VENOUS STAT 11/30/2024 4:44 PM CDT CBC W/DIFF AUTOMATED STAT 11/30/2024 4:44 PM CDT POCT GLUCOSE - DOCKED DEVICE Routine 11/30/2024 4:33 PM CDT from Last 3 Months Results * CLINIC - OUTPATIENT EVENT RECORDER (ECG) UP TO 30 DAYS COMPLETE (Holter) (02/06/2025 2:22 PM CDT) Narrative [facility] - 02/06/2025 2:22 PM CDT EVENT MONITOR REPORT Patient Name: Clarisa Panchal : 1975 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 Gruber PCP: TODD HERNANDEZ MD INDICATION: arrhythmia DURATION OF MONITORIN days NUMBER OF TRANSMISSIONS: 2 INTERPRETATION: Sinus rhythm, rate 47 - 177, average 82 No pauses RI 0.16,QRS 0.08, QTc 0.40 2 patient transmissions with no specified symptoms - sinus rhythm , rate 87, 91 Low frequency PACs with no atrial fibrillation or atrial flutter - less than 1 % burden Two episodes of nonsustained supraventricular tachycardia 4.1 sec. Rate 145 2.3 sec. Rate 150 Low frequency PVCs- less than 1 % burden One episode of nonsustained monomorphic ventricular tachycardia - 2.9 sec. Rate 165 One episode of idioventricular rhythm - 2.1 sec. Rate 106 CONCLUSION: Sinus rhythm, average rate 82 Low frequency PACs,PVCs Two short episodes of nonsustained SVT One episode of nonsustained monomorphic ventricular tachycardia Electronically signed by EZRA GRUBER MD 02/27/2025 11:32 AM us Wilfredo Ray MD CV VASCULAR ORDERABLES Audelia l Result [facility] * (ABNORMAL) COMPREHENSIVE METABOLIC PANEL (12/02/2024 4:27 AM CDT) Only the most recent of3 resultswithin the time period is included. GLUCOSE 103(H) 70 - 99 MG/DL 12/02/2024 5:19 AM CDT [facility] BUN 17 7 - 18 MG/DL 12/02/2024 5:19 AM CDT [facility] CREATININE S/P/B 0.67 0.55 - 1.02 MG/DL 12/02/2024 5:19 AM CDT [facility] SODIUM S/P/B 137 136 - 145 MMOL/L 12/02/2024 5:19 AM CDT [facility] POTASSIUM S/P/B 4.0 3.5 - 5.1 MMOL/L 12/02/2024 5:19 AM CDT [facility] CHLORIDE S/P/B 105 97 - 115 MMOL/L 12/02/2024 5:19 AM CDT [facility] CO2 27.9 21 - 32 MMOL/L 12/02/2024 5:19 AM CDT [facility] CALCIUM S/P/B 9.1 8.5 - 10.1 MG/DL 12/02/2024 5:19 AM CDT [facility] BILIRUBIN TOTAL S/P/B 0.7 0.2 - 1.2 MG/DL 12/02/2024 5:19 AM CDT [facility] Comment: THIS ASSAY IS NOT RECOMMENDED FOR PATIENTS UNDERGOING TREATMENT WITH ELTROMBOPAG DUE TO THE POTENTIAL FOR FALSELY ELEVATED RESULTS. TOTAL PROTEIN S/P/B 6.6 6.4 - 8.2 G/DL 12/02/2024 5:19 AM CDT [facility] ALBUMIN S/P/B 3.3(L) 3.4 - 5.0 G/DL 12/02/2024 5:19 AM CDT [facility] AST 17 15 - 37 U/L 12/02/2024 5:19 AM CDT [facility] ALT 18 14 - 55 U/L 12/02/2024 5:19 AM CDT [facility] ALKALINE PHOSPHATASE S/P/B 53 50 - 136 U/L 12/02/2024 5:19 AM CDT [facility] ANION GAP 4.1 2 - 10 MMOL/L 12/02/2024 5:19 AM CDT [facility] BUN CREATININE RATIO 25.3 6 - 26 12/02/2024 5:19 AM CDT [facility] A/G RATIO 1.0 1.0 - 2.0 RATIO 12/02/2024 5:19 AM CDT [facility] GFR ESTIMATE >90 >90 ML/MIN/1.7 3 M2 12/02/2024 5:19 AM CDT [facility] Comment: NOTE: eGFR is not calculated for patients <18 years of age or gender unknown. This is an estimated GFR calculation using the new CKD EPI creatinine equation without race and so does not require a correction factor for race. This estimated GFR should not be used for calculating drug doses. 12/02/2024 4:27 AM CDT us Rupesh Barragan MD LABORATORY Final Result [facility] [address] [place] [address], [place] [phone] * (ABNORMAL) CBC W/DIFF AUTOMATED (12/02/2024 4:27 AM CDT) Only the most recent of3 resultswithin the time period is included. WBC 7.78 4.5 - 11.0 x10'3/uL 12/02/2024 5:05 AM CDT [facility] RBC 4.10(L) 4.20 - 5.40 x10'6/uL 12/02/2024 5:05 AM CDT [facility] HGB 12.3 12.0 - 16.0 G/DL 12/02/2024 5:05 AM T [facility] HCT 35.9(L) 38.0 - 48.0 % 12/02/2024 5:05 AM CDT [facility] MCV 87.6 81.0 - 99.0 FL 12/02/2024 5:05 AM T [facility] MCH 30.0 27.0 - 31.0 PG 12/02/2024 5:05 AM T [facility] MCHC 34.3 32.0 - 36.0 G/DL 12/02/2024 5:05 AM T [facility] RDW 18.8(H) 11.5 - 14.5 % 12/02/2024 5:05 AM T [facility] PLT 269 130 - 400 x10'3/uL 12/02/2024 5:05 AM [facility] MPV 8.7(L) 9.3 - 12.2 FL 12/02/2024 5:05 AM [facility] DIFFERENTIAL TYPE AUTOMATED DIFFERENTIAL 12/02/2024 5:05 AM T [facility] NEUTROPHILS % 72.9 % 12/02/2024 5:05 AM T [facility] LYMPHOCYTES % 16.2 % 12/02/2024 5:05 AM [facility] MONOCYTES % 7.8 % 12/02/2024 5:05 AM T [facility] EOSINOPHILS 2.4 % 12/02/2024 5:05 AM CDT [facility] BASOPHILS 0.4 % 12/02/2024 5:05 AM CDT [facility] IMMATURE GRANS % 0.3 % 12/03/19 5:05 AM CDT [facility] ABS. NEUTROPHILS 5.67 1.80 - 7.70 x10'3/uL 12/02/2024 5:05 AM CDT [facility] ABS. LYMPHOCYTES 1.26 1.00 - 4.80 x10'3/uL 12/02/2024 5:05 AM CDT [facility] ABS. MONOCYTES 0.61 0.24 - 0.86 x10'3/uL 12/02/2024 5:05 AM CDT [facility] ABS. EOSINOPHILS 0.19 0.04 - 0.36 x10'3/uL 12/02/2024 5:05 AM CDT [facility] ABS. BASOPHILS 0.03 0.01 - 0.08 x10'3/uL 12/02/2024 5:05 AM CDT [facility] ABS. IMMATURE GRANULOCYTES 0.02 0.00 - 0.49 x10'3/uL 12/02/2024 5:05 AM CDT [facility] 12/02/2024 4:27 AM CDT us Rupesh Barragan MD LABORATORY Final Result [facility] [address] [place] [address], [place] [phone] * MAGNESIUM (12/02/2024 4:27 AM CDT) Only the most recent of2 resultswithin the time period is included. MAGNESIUM 1.9 1.8 - 2.4 MG/DL 12/02/2024 5:19 AM CDT [facility] 12/02/2024 4:27 AM CDT Rupesh Barragan MD LABORATORY Final Result [facility] [address] [place] [address], * CT HEAD WO CON (12/01/2024 5:09 PM CDT) Anatomical Region Laterality Modality Head Computed Tomogra phy 12/02/2024 2:52 AM CDT Impressions 12/02/2024 2:55 AM CDT IMPRESSION: 1. NO ACUTE INTRACRANIAL ABNORMALITY. Signed: Baldemar Ramirez MD Referred By: Interpreted By: Baldemar Ramirez MD, 12/02/2024 2:52 AM Narrative 12/02/2024 2:[address] [facility] [address] [place], [place] [address] PATIENT NAME: CLARISA PANCHAL EXAM: CT head without contrast DATE OF EXAM: 12/01/2024 COMPARISON EXAM: 11/30/2024 INDICATION: Stroke symptoms, post thrombolytic TECHNIQUE: Axial images obtained from level of foramen magnum to the vertex without contrast using low-dose CT technique. Sagittal and coronal reconstruction. FINDINGS: There is a normal craniovertebral junction. Ventricles are normal in size and morphology. Extra-axial CSF spaces are within normal limits. There is no evidence of acute intracranial hemorrhage. No evidence of a focal intracranial mass lesion. No abnormal extra-axial fluid collection. There is no evidence of acute regional edema, mass effect or midline shift. The sella and CP angle regions are unremarkable. Mastoid air cells are clear bilaterally. Paranasal sinuses are clear. Procedure Note Baldemar Ramirez MD - 12/02/2024 [facility] [address] [place], [place] [address] PATIENT NAME: CLARISA PANCHAL EXAM: CT head without contrast DATE OF EXAM: 12/01/2024 COMPARISON EXAM: 11/30/2024 INDICATION: Stroke symptoms, post thrombolytic TECHNIQUE: Axial images obtained from level of foramen magnum to thevertex without contrast using low-dose CT technique. Sagittal and coronalreconstruction. FINDINGS: There is a normal craniovertebral junction. Ventricles arenormal in size and morphology. Extra-axial CSF spaces are within normallimits. There is no evidence of acute intracranial hemorrhage. No evidence of a focal intracranial mass lesion. No abnormal extra-axialfluid collection. There is no evidence of acute regional edema, masseffect or midline shift. The sella and CP angle regions are unremarkable. Mastoid air cells areclear bilaterally. Paranasal sinuses are clear. IMPRESSION: 1. NO ACUTE INTRACRANIAL ABNORMALITY. Signed: Baldemar Ramirez MD Referred By: Interpreted By: Baldemar Ramirez MD, 12/02/2024 2:52 AM Yancy Mendez MD CT Final Result * USE ECHO 2D FU LTD W CON (12/01/2024 11:08 AM CDT) Anatomical Region Laterality Modality NA Echocardiogram 12/01/2024 10:4 7 AM CDT Narrative 12/01/2024 11:49 AM CDT Echocardiography Report Pat.Name: CLARISA PANCHAL Pat.ID: [id number] .Date: 12/01/2024 Exam Time: 10:47:00 AM Study Type:ECHO WITH CARDIAC DOPPLER COMP Height: 62 in Weight: 124 lb BSA: 1.56 m2 Age: 9 1975,49Y Sex: F BP: 127/86 HR: 65 bpm Sonogrphr: Jimi Madera [facility], [facility] Pat. Stat.:Inpatient Room: 213 Reason for Study:CVA History / Clinical:Cardiomyopathy Procedures: 2D, Doppler, Color Flow, Definity was used to enhance endocardial definition. Intraveneous saline contrast was used to help determine presence of intracardiac shunting. Portable, The study quality is technically difficult. Race: W ++++++++++++++++++++++++++++++++++++ SUMMARY: ++++++++++++++++++++++++++++++++++++ The left ventricular size is normal. The calculated ejection fraction is 35%. No concentric left ventricular hypertrophy. No evidence of thrombus. Severe global hypokinesis is noted. Atrial septum appears intact. The agitated saline injection showed no clear evidence of shunting into the left atrium, consistent with no patent foramen ovale. Aortic root is mildly dilated. The sinus of Valsalva measures 4.3cm. ++++++++++++++++++++++++++++++++++++ FINDINGS: ++++++++++++++++++++++++++++++++++++ LV: The left ventricular size is normal. The calculated ejection fraction is 35%. No concentric left ventricular hypertrophy. No evidence of thrombus. WM: Severe global hypokinesis is noted. IAS: Atrial septum appears intact. The agitated saline injection showed no clear evidence of shunting into the left atrium, consistent with no patent foramen ovale. RAYA: No evidence of pericardial effusion. AO: Aortic root is mildly dilated. The sinus of Valsalva measures 4.3cm. SVn: Inferior vena cava is normal. Inferior vena cava shows >50% collapse with respiration consistent with normal right atrial pressure. ++++++++++++++++++++++++++++++++++++ MEASUREMENTS: ++++++++++++++++++++++++++++++++++++ 2D Left Ventricle LVIDd 4.53 cm (3.6-5.2) LV ESV 66.3 ml LVIDs 3.76 cm (2.3-3.9) LV ESV 73.9 ml LngAxd 8.83 cm LVESV BP 70.2 ml LngAxd 8.9 cm LV EF 37.5 % LV EDV 106 ml LV EF 34 % LV EDV 112 ml LV EF BP 35.6 % LVEDV BP 109 ml LV SV 39.7 ml LngAxs 8.3 cm LV SV 38.1 ml LngAxs 8.21 cm LV SV BP 38.8 ml LVPW LVPWd 1.09 cm Ventricular Septum IVSd 1.01 cm Ratios IVS <Electronic Signature> 12/01/2024 11:49 AM Ezra Gruber M.D. Procedure Note Ezra Gruber MD - 12/01/2024 Echocardiography Report Pat.Name: CLARISA PANCHAL.ID: [id number] .Date: 12/01/2024 Exam Time: 10:47:00 AM Study Type:ECHO WITH CARDIAC DOPPLER COMP Height: 62 in Weight: 124 lb BSA: 1.56 m2 Age: 9 1975,49Y Sex: F BP: 127/86 HR: 65 bpm Sonogrphr: Jimi Madera [facility] Pat. Stat.:Inpatient Room: 213 Reason for Study:CVA History / Clinical:Cardiomyopathy Procedures: 2D, Doppler, Color Flow, Definity was used to enhance endocardial definition. Intraveneous saline contrast was used to help determine presence of intracardiac shunting. Portable, The study quality is technically difficult. Race: W ++++++++++++++++++++++++++++++++++++ SUMMARY: ++++++++++++++++++++++++++++++++++++ The left ventricular size is normal. The calculated ejection fraction is 35%. No concentric left ventricular hypertrophy. No evidence of thrombus. Severe global hypokinesis is noted. Atrial septum appears intact. The agitated saline injection showed no clear evidence of shunting into the left atrium, consistent with no patent foramen ovale. Aortic root is mildly dilated. The sinus of Valsalva measures 4.3cm. ++++++++++++++++++++++++++++++++++++ FINDINGS: ++++++++++++++++++++++++++++++++++++ LV: The left ventricular size is normal. The calculated ejection fraction is 35%. No concentric left ventricular hypertrophy. No evidence of thrombus. WM: Severe global hypokinesis is noted. IAS: Atrial septum appears intact. The agitated saline injection showed no clear evidence of shunting into the left atrium, consistent with no patent foramen ovale. RAYA: No evidence of pericardial effusion. AO: Aortic root is mildly dilated. The sinus of Valsalva measures 4.3cm. SVn: Inferior vena cava is normal. Inferior vena cava shows >50% collapse with respiration consistent with normal right atrial pressure. ++++++++++++++++++++++++++++++++++++ MEASUREMENTS: ++++++++++++++++++++++++++++++++++++ 2D Left Ventricle LVIDd 4.53 cm (3.6-5.2) LV ESV 66.3 ml LVIDs 3.76 cm (2.3-3.9) LV ESV 73.9 ml LngAxd 8.83 cm LVESV BP 70.2 ml LngAxd 8.9 cm LV EF 37.5 % LV EDV 106 ml LV EF 34 % LV EDV 112 ml LV EF BP 35.6 % LVEDV BP 109 ml LV SV 39.7 ml LngAxs 8.3 cm LV SV 38.1 ml LngAxs 8.21 cm LV SV BP 38.8 ml LVPW LVPWd 1.09 cm Ventricular Septum IVSd 1.01 cm Ratios IVS <Electronic Signature> 12/01/2024 11:49 AM Ezra Gruber M.D. us Li Dunn MD ECHO Final Re sult * MRI HEAD WO CON (12/01/2024 8:05 AM CDT) Anatomical Region Laterality Modality Head Magnetic Resonan ce 12/01/2024 8:18 AM CDT Impressions 12/01/2024 8:46 AM CDT IMPRESSION: Unremarkable noncontrast enhanced. No acute infarct, hemorrhage or mass effect. Referred By: Interpreted By: Isma Rivera MD, 12/01/2024 8:18 AM Narrative 12/01/2024 8:46 AM CDT [address] [address] EXAMINATION:Brain MRI without contrast 12/01/2024 INDICATION:CVA, postthrombolytic TECHNIQUE: Multiplanar multisequence MR imaging of the head was performed without intravenous contrast. COMPARISON: Head CT without contrast 11/30/2024, CT angiogram of the head and neck 11/30/2024 FINDINGS:No restricted diffusion. No acute hemorrhage or abnormal susceptibility artifact. No mass effect, midline shift or extra-axial fluid collection. No ventriculomegaly. Expected flow voids are noted within the intracranial internal carotid, vertebral basilar is. Cerebellopontine angles and internal auditory canals are unremarkable. The pituitary gland midline structures are unremarkable. Bone marrow signal is within normal limits. Orbits and globes are unremarkable. Expected sigmoids are seen within paranasal sinuses and mastoid air cells. Procedure Note Isma Rivera MD - 12/01/2024 [facility] [address] [place], [place] [address] EXAMINATION:Brain MRI without contrast 12/01/2024 INDICATION:CVA, postthrombolytic TECHNIQUE: Multiplanar multisequence MR imaging of the head was performedwithout intravenous contrast. COMPARISON: Head CT without contrast 11/30/2024, CT angiogram of the headand neck 11/30/2024 FINDINGS:No restricted diffusion. No acute hemorrhage or abnormalsusceptibility artifact. No mass effect, midline shift or extra-axial fluid collection. Noventriculomegaly. Expected flow voids are noted within the intracranialinternal carotid, vertebral basilar is. Cerebellopontine angles andinternal auditory canals are unremarkable. The pituitary gland midlinestructures are unremarkable. Bone marrow signal is within normallimits. Orbits and globes are unremarkable. Expected sigmoids are seen withinparanasal sinuses and mastoid air cells. IMPRESSION: Unremarkable noncontrast enhanced. No acute infarct,hemorrhage or mass effect. Referred By: Interpreted By: Isma Rivera MD, 12/01/2024 8:18 AM Li Dunn MD MRI Final Re sult * PARTIAL THROMBOPLASTIN TIME,PTT (12/01/2024 4:37 AM CDT) Only the most recent of2 resultswithin the time period is included. PTT 28.9 25.1 - 36.5 SEC 12/01/2024 5:06 AM CDT [facility] 12/01/2024 4:37 AM CDT Li Dunn MD LABORATORY Final Re sult [facility] [address] [place] [address], [place] [phone] * PROTHROMBIN TIME, VENOUS (12/01/2024 4:37 AM CDT) Only the most recent of2 resultswithin the time period is included. PROTIME 10.7 10.2 - 12.9 SEC 12/01/2024 5:06 AM CDT [facility] INR 0.9 12/01/2024 5:06 AM CDT [facility] Comment: Recommended INR Therapeutic Goals: 2.0-3.0 Routine Therapy 2.5-3.5 Mechanical Prosthetic Valves (High Risk) 12/01/2024 4:37 AM CDT us Li Dunn MD LABORATORY Final Re sult [facility] [address] [place] [address], [place] [phone] * (ABNORMAL) LIPID PANEL (12/01/2024 4:37 AM CDT) CHOLESTEROL 219(H) <200 MG/DL 12/01/2024 5:29 AM CDT [facility] TRIGLYCERIDES 68 <150 MG/DL 12/01/2024 5:29 AM CDT [facility] HDL 90 >40.0 MG/DL 12/01/2024 5:29 AM CDT [facility] LDL (CALCULATED) 115(H) <100 MG/DL 12/01/2024 5:29 AM CDT [facility] Comment:CALCULATED USING THE FRIEDEWALD EQUATION NON HDL CHOLESTEROL 129 <130 MG/DL 12/01/2024 5:29 AM T [facility] CHOL/HDL RATIO 2.4 0.0 - 4.5 12/01/2024 5:29 AM T [facility] VLDL CALCULATION 14 5 - 55 MG/DL 12/01/2024 5:29 AM T [facility] LIPID INTERPRETATION 12/01/2024 5:29 AM T [facility] Comment: NIH CONCENSUS REPORT RECOMMENDATIONS: ADULT CHILD LOW RISK: CHOLESTEROL <200 <170 TRIGLYCERIDE <150 --- HDL >=60 --- LDL <100 <110 BORDERLINE: CHOLESTEROL 200-239 170-199 TRIGLYCERIDE 150-199 --- HDL 40-59 --- LDL 100-159 110-129 HIGH RISK: CHOLESTEROL >=240 >=200 TRIGLYCERIDE >=200 --- HDL <40 --- LDL >=160 >=130 12/01/2024 4:37 AM CDT us Li Dunn MD LABORATORY Final Re sult [facility] [address] [place] [address], [place] [phone] * (ABNORMAL) DRUG SCREEN RAPID (12/01/2024 12:10 AM CDT) [facility] AMPHETAMINE (U) NEGATIVE NEGATIVE 12:46 AM CDT [facility] BARBITURATES SCREEN (U) NEGATIVE NEGATIVE 12/01/2024 12:46 AM CDT [facility] BENZODIAZEPINES SCREEN (U) NEGATIVE NEGATIVE 12/01/2024 12:46 AM CDT [facility] CANNABINOIDS SCREEN (U) POSITIVE(A) NEGATIVE 12/01/2024 12:46 AM CDT [facility] COCAINE METABOLITES (U) NEGATIVE NEGATIVE 12/01/2024 12:46 AM CDT [facility] METHADONE (U) NEGATIVE NEGATIVE 12/01/2024 12:46 AM CDT [facility] OPIATE SCREEN (U) NEGATIVE NEGATIVE 025 12:46 AM CDT [facility] PHENCYCLIDINE PCP (U) NEGATIVE NEGATIVE 12/01/2024 12:46 AM CDT [facility] Comment: NOTE: RESULTS OF THIS DRUG SCREEN SHOULD BE USED FOR MEDICAL PURPOSES ONLY AND NOT FOR LEGAL OR EMPLOYMENT PURPOSES. POSITIVE RESULTS ARE NOT CONFIRMED. MEDICATIONS CONTAINING EPHEDRINE MAY CAUSE FALSE POSITIVE AMPHETAMINE CALL [phone], LAB, TO REQUEST CONFIRMATION TESTING. IF CREATININE IS <40 mg/dL. RECOLLECTION IS SUGGESTED. AMPHETAMINE- 500 NG/ML BARBITURATE- 200 NG/ML BENZODIAZEPINES- 200 NG/ML THC- 50 NG/ML COCAINE- 150 NG/ML METHADONE- 300 NG/ML OPIATE- 300 MG/ML PCP- 25 NG/ML CREATININE (U) 75.0 28 - 217 MG/DL 12/01/2024 12:46 AM CDT [facility] URINE SPECIMEN / Unknown 12/01/2024 12:10 AM CDT us Adin LOCKE URINE ORDERABLES Final Res ult [facility] [address] [place] [address], [place] [phone] * XR CHEST PORTABLE (11/30/2024 11:15 PM CDT) Anatomical Region Laterality Modality Chest Radiographic Raquel ging 12/01/2024 12:0 3 AM CDT Impressions 12/01/2024 12:04 AM CDT IMPRESSION: 1. Cardiomegaly with pulmonary vascular congestion. Referred By: Interpreted By: Hola Styles MD, 12/01/2024 12:03 AM Narrative 12/01/2024 12:04 AM CDT [address] [address] INDICATION: CHF COMPARISON: X-ray chest 11/15/2024 TECHNIQUE: Single AP image of the chest FINDINGS: No focal airspace consolidation. No pleural effusion or pneumothorax. Cardiac silhouette is enlarged. Pulmonary vascular congestion. No acute osseous abnormality. Procedure Note Hola Styles, - 12/01/[address] [address] INDICATION: CHF COMPARISON: X-ray chest 11/15/2024 TECHNIQUE: Single AP image of the chest FINDINGS: No focal airspace consolidation. No pleural effusion or pneumothorax.Cardiac silhouette is enlarged. Pulmonary vascular congestion. No acuteosseous abnormality. IMPRESSION: 1. Cardiomegaly with pulmonary vascular congestion. Referred By: Interpreted By: Hola Styles MD, 12/01/2024 12:03 AM Li Dunn MD GENERAL IMAGING Final Re sult * MRSA SCREENING (11/30/2024 8:52 PM CDT) SPEC DESCRIPTION NASAL 11/30/2024 11:20 PM CDT [facility] SPECIAL REQUESTS NO SPECIAL REQUEST 11/30/2024 11:20 PM CDT [facility] CULTURE RESULT NO METHICILLIN RESISTANT STAPHYLOCOCCUS AUREUS ISOLATED 12/02/2024 6:54 AM CDT [facility] SPECIMEN FROM INTERNAL NOSE / Unknown 11/30/2024 8:52 PM CDT 12/01/2024 12:15 AM CDT Li Dunn MD MICROBIOLOGY - GENERAL O RDERABLES Final Result [facility] [address] [place] [address], [place] [phone] * ECG 12 lead (11/30/2024 6:27 PM CDT) 11/30/2024 6:27 PM CDT Narrative [facility] ([facility]) RAD - 12/02/2024 7:32 AM CDT [address] Test Date: 2024-11-30 Pat Name: CLARISA PANCHAL Department: 41 Room: [facility] 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1975 Requested By: ADIN LYNN Order Number: [id number] Shirley MD: Ezra Gruber Measurements Intervals [place] Rate: 91 P: 62 RI: 168 QRS: -59 QRSD: 96 T: 91 QT: 393 QTc: 484 Interpretive Statements SINUS RHYTHM POSSIBLE LEFT ATRIAL ENLARGEMENT [-0.1mV P-WAVE IN V1/V2] INCOMPLETE RIGHT BUNDLE BRANCH BLOCK [90+ ms QRS DURATION, TERMINAL R IN V1/V2, 40+ ms S IN I/aVL/V4/V5/V6] LEFT ANTERIOR FASCICULAR BLOCK [QRS AXIS <= -45, QR IN I, RS IN II] NONSPECIFIC ST & T-WAVE ABNORMALITY Compared to ECG 11/15/2024 14:30:48 T-wave abnormality now present Other ischemic changes, not STEMI Preliminary EKG Interpretation by Elinor Castellon MD Procedure Note Ezra Gruber MD - 12/02/[address] Test Date: 2024-11-30 Pat Name: CLARISA PANCHAL Department: 41 Room: [facility] 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1975 Requested By: ADIN LYNN Order Number: [id number] Reading MD: Ezra Gruber Measurements Intervals [place] Rate: 91 P: 62 RI: 168 QRS: -59 QRSD: 96 T: 91 QT: 393 QTc: 484 Interpretive Statements SINUS RHYTHM POSSIBLE LEFT ATRIAL ENLARGEMENT [-0.1mV P-WAVE IN V1/V2] INCOMPLETE RIGHT BUNDLE BRANCH BLOCK [90+ ms QRS DURATION, TERMINAL RIN V1/V2, 40+ ms S IN I/aVL/V4/V5/V6] LEFT ANTERIOR FASCICULAR BLOCK [QRS AXIS <= -45, QR IN I, RS IN II] NONSPECIFIC ST & T-WAVE ABNORMALITY Compared to ECG 11/15/2024 14:30:48 T-wave abnormality now present Other ischemic changes, not STEMI Preliminary EKG Interpretation by Elinor Castellon MD us Adin LOCKE ECG ORDERABLES Final Resu lt [facility] ([facility]) RAD * CT STROKE(HEAD WO) (11/30/2024 5:00 PM CDT) Anatomical Region Laterality Modality Head Computed Tomogra phy 11/30/2024 4:51 PM CDT Impressions 11/30/2024 4:57 PM CDT IMPRESSION: No definite CT evidence for acute intracranial abnormality. Please note that CT has limited sensitivity for the detection of acute ischemia. Negative report called to the patient's ER physician at 4:55 PM. Referred By: Interpreted By: Kaushik Bales MD, 11/30/2024 4:51 PM Narrative 11/30/2024 4:57 PM CDT [place] [address] EXAMINATION: CT of the head CLINICAL HISTORY: Left-sided weakness COMPARISON: 11/15/2024 TECHNIQUE: CT examination of the head without contrast was performed with axial images obtained. A radiation dose lowering technique was used for this procedure, which may include, but is not limited to, dose reduction technique, automated exposure control, the use of iterative reconstruction, ALARA (As Low As Reasonably Achievable) techniques, and Image Gently techniques. FINDINGS: There is no evidence of acute intracranial hemorrhage, abnormal extra-axial collections, intracranial mass effect, or midline shift. The ventricles and extra-axial/subarachnoid spaces are unremarkable. There is no definite CT evidence to suggest acute territorial infarction. The calvarium is unremarkable without evidence of acute fracture. The visualized mastoid air cells, paranasal sinuses, and orbits are grossly unremarkable. Procedure Note Kaushik Bales MD - 11/30/[address] [address] EXAMINATION: CT of the head CLINICAL HISTORY: Left-sided weakness COMPARISON: 11/15/2024 TECHNIQUE: CT examination of the head without contrast was performed withaxial images obtained. A radiation dose lowering technique was used forthis procedure, which may include, but is not limited to, dose reductiontechnique, automated exposure control, the use of iterativereconstruction, ALARA (As Low As Reasonably Achievable) techniques, andImage Gently techniques. FINDINGS: There is no evidence of acute intracranial hemorrhage, abnormalextra-axial collections, intracranial mass effect, or midline shift. Theventricles and extra-axial/subarachnoid spaces are unremarkable. There isno definite CT evidence to suggest acute territorial infarction. Thecalvarium is unremarkable without evidence of acute fracture. Thevisualized mastoid air cells, paranasal sinuses, and orbits are grosslyunremarkable. IMPRESSION: No definite CT evidence for acute intracranial abnormality. Please note that CT has limited sensitivity for the detection of acuteischemia. Negative report called to the patient's ER physician at 4:55 PM. Referred By: Interpreted By: Kaushik Bales MD, 11/30/2024 4:51 PM us Adin LOCKE CT Final Resu lt * CTA HEAD+NECK (11/30/2024 5:00 PM CDT) Anatomical Region Laterality Modality Head, Neck Computed Tomogra phy 11/30/2024 5:10 PM CDT Impressions 11/30/2024 5:14 PM CDT IMPRESSION: 1. No evidence of large vessel occlusion in the [place]. 2. No significant stenosis in the major neck arteries. Referred By: Interpreted By: Kaushik Bales MD, 11/30/2024 5:10 PM Narrative 11/30/2024 5:[address] PM [address] [address] INDICATION: Left-sided weakness EXAMINATION: CTA HEAD+NECK TECHNIQUE: CT angiography of the head and neck was performed after uneventful intravenous injection of 100mL Isovue 370. Stenoses are graded using NASCET criteria. 3D Post-processed images were reconstructed on an independent workstation. A radiation dose lowering technique was used for this procedure, which may include, but is not limited to, dose reduction technique, automated exposure control, the use of iterative reconstruction, ALARA (As Low As Reasonably Achievable) techniques, and Image Gently techniques. DATE/TIME: 11/30/2024 4:35 PM COMPARISON: CT, same date FINDINGS: NECK: Normal 3 vessel aortic arch anatomy. Great vessel origins are patent. Mild atherosclerotic carotid disease of the left side without significant ICA stenosis on either side by NASCET criteria. Common carotid arteries are patent. Minimal narrowing of the right subclavian artery. No significant stenosis of either vertebral artery. Mild cervical spondylosis. HEAD: Basilar artery is patent. Intracranial ICA segments are patent. No definite significant stenosis or occlusion identified in the major proximal portions of the anterior, middle or posterior cerebral arteries. 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 The A2 segment is perfused via the anterior communicating artery. No intracranial aneurysm identified. Procedure Note Kaushik Bales MD - 11/30/[address] [address] INDICATION: Left-sided weakness EXAMINATION: CTA HEAD+NECK TECHNIQUE: CT angiography of the head and neck was performed after uneventfulintravenous injection of 100mL Isovue 370. Stenoses are graded usingNASCET criteria. 3D Post-processed images were reconstructed on anindependent workstation. A radiation dose lowering technique was used forthis procedure, which may include, but is not limited to, dose reductiontechnique, automated exposure control, the use of iterativereconstruction, ALARA (As Low As Reasonably Achievable) techniques, andImage Gently techniques. DATE/TIME: 11/30/2024 4:35 PM COMPARISON: CT, same date FINDINGS: NECK: Normal 3 vessel aortic arch anatomy. Great vessel origins are patent.Mild atherosclerotic carotid disease of the left side without significantICA stenosis on either side by NASCET criteria. Common carotid arteriesare patent. Minimal narrowing of the right subclavian artery. Nosignificant stenosis of either vertebral artery. Mild cervicalspondylosis. HEAD: Basilar artery is patent. Intracranial ICA segments are patent. Nodefinite significant stenosis or occlusion identified in the majorproximal portions of the anterior, middle or posterior cerebral arteries.The right anterior cerebral artery A1 segment is absent, likelycongenital. The A2 segment is perfused via the anterior communicatingartery. No intracranial aneurysm identified. IMPRESSION: 1. No evidence of large vessel occlusion in the [place]. 2. No significant stenosis in the major neck arteries. Referred By: Interpreted By: Kaushik Bales MD, 11/30/2024 5:[address] Final Resu lt * TROPONIN, QUANT (11/30/2024 4:44 PM CDT) TROPONIN I HIGH SENSITIVITY 31 <54 ng/L 11/30/2024 5:47 PM CDT [facility] Comment: HIGH DOSES OF BIOTIN, TROPONIN-SPECIFIC AUTOANTIBODIES, AND ANTIBODY THERAPY CONTAINING HAMA MAY INTERFERE WITH THIS TEST RESULT. CORRELATION TO CLINICAL HISTORY AND PRESENTATION RECOMMENDED. 11/30/2024 4:44 PM CDT Adin LOCKE LABORATORY Final Resu lt [facility] [address] [place] [address], [place] [phone] * (ABNORMAL) ETHANOL (11/30/2024 4:44 PM CDT) ALCOHOL S/P/B 0.189(H) <0.003 G/DL 11/30/2024 5:47 PM CDT [facility] 11/30/2024 4:44 PM CDT Adin LOCKE LABORATORY Final Resu lt [facility] [address] [place] [address], [place] [phone] * POCT glucose (11/30/2024 4:33 PM CDT) GLUCOSE POC 93 70 - 99 mg/dL 11/30/2024 4:36 PM CDT [facility] 11/30/2024 4:33 PM CDT us Attending Physician Emergency MD POCT ORDERABLES - DEVICE Final Result [facility] [address] [place] [address], [place] [phone] from Last 3 Months Insurance [facility] Advance Directives * Full Code (Latest Code Status on File) Date Activated Date Inactivated Comments 11/30/2024 7:20 PM 12/03/2024 3:20 PM * Full Code Date Activated Date Inactivated Comments 10/16/2024 4:43 PM 10/21/2024 2:01 PM Care Teams Crude Unit Operator Relationship Specialty Start Date End Date Todd Hernandez MD [facility] [place] [address] PCP - General INTERNAL MEDICINE 10/24/24
[2025-03-02 17:30] LABS: Vitamin B12 218.0 pg/mL (239-931)
[2025-03-02] MEDS: CYANOCOBALAMIN INJ 1,000 MCG/ML VIAL 1000 MCG IM (18:59)
[2025-03-02] MEDS: ATORVASTATIN 40 MG TABLET 80 MG PO (20:45)
[2025-03-03] VITALS (10 sets, daily range): BP systolic 122–142; BP diastolic 80–97; PULSE 80–104; RESP 12–16; TEMP 36.6–36.7; O2SAT 96–98
[2025-03-03 04:10] LABS: Alanine Aminotransferase 13 U/L (6-35); Albumin Level 3.6 g/dL (3.5-5.1); Alkaline Phosphatase 125 U/L (38-126); Anion Gap 6 mmol/L (4-12); Aspartate Amino Transferase 32 U/L (14-36); Bilirubin,Total 0.4 mg/dL (0.2-1.3); Blood Urea Nitrogen 20 mg/dL (7-17); Calcium 8.3 mg/dL (8.4-10.2); Carbon Dioxide 31 mmol/L (22-30); Chloride 99 mmol/L (98-107); Creatine Kinase 289 U/L (30-135); Estimated CRCL calculation 57 ml/min; Estimated Glomerular Filt Rate > 60; Glucose 102 mg/dL (65-110); Magnesium 1.8 mg/dL (1.6-2.3); Potassium 2.7 mmol/L (3.4-5.0); Sodium 136 mmol/L (137-145); Total Protein 6.2 g/dL (6.3-8.2)
[2025-03-03] MEDS: POTASSIUM CHLORIDE 20 MEQ ER TABLET 40 MEQ PO ×3 (05:09→12:17)
[2025-03-03] MEDS: MAGNESIUM SULF 2 GM/WATER 50ML 2 GM/50 ML BAG IVPB (05:09)
[2025-03-03] MEDS: ASPIRIN 81 MG CHEWABLE TABLET PO (08:44)
[2025-03-03] MEDS: LOSARTAN POTASSIUM 50 MG TABLET PO (08:45)
[2025-03-03] MEDS: FOLIC ACID 1 MG TABLET PO (08:45)
[2025-03-03] MEDS: SPIRONOLACTONE 25 MG TABLET PO (08:45)
[2025-03-03] MEDS: CHOLECALCIFEROL (VITAMIN D3) 25 MCG (1,000 UNITS) TABLET PO (08:45)
[2025-03-03] MEDS: EMPAGLIFLOZIN 10 MG TABLET PO (08:45)
[2025-03-03] MEDS: THIAMINE HCL 100 MG TABLET PO (08:45)
[2025-03-03] MEDS: FUROSEMIDE 40 MG TABLET PO (08:45)
[2025-03-03] MEDS: CYANOCOBALAMIN 1,000 MCG TABLET 1000 MCG PO (08:45)
--- NOTE | 2025-03-03 10:46 | WPDNEURCNPN ---
Assessment and Plan Assessment and plan (1) Alcoholism: Code(s): F10.20 - Alcohol dependence, uncomplicated Status: Acute (2) Anxiety: Code(s): F41.9 - Anxiety disorder, unspecified Status: Acute (3) Depression: Code(s): F32.A - Depression, unspecified Status: Acute Plan 1. Anxiety with panic attacks 2. Rule out the possibility of partial seizure, extremely unlikely and EEG will be recommended. 3. Alcoholism. Patient is already receiving the atorvastatin 80mg at night, aspirin 81mg daily, and carvedilol 6.25mg b.i.d. in addition to Jardiance 10mg daily E citalopram 10mg daily in addition to antihypertensive medication as well she has been already started on thiamine 100mg daily will not start the anticonvulsant at this particular time till the EEG obtained. If any further question arises please do not hesitate to contact me thank Consult date: 03/03/25 HPI: Alma Strauss is a 50 year old femaleAdmitted to the hospital through the emergency room with the complaints of shortness of breath and shaking. EMS were called to the scene who noted patient was shaking and unable to speak. They were able to life skills coach her tachypnea down to normal rate and her vital signs were stable in the emergency room but patient reported that she went to sleep fine and woke up with a headache. Patient has been taking multiple medications as outlined 1. Aspirin 81mg daily 2. Atorvastatin 80mg at night 3. Carvedilol 6.25mg b.i.d. 4. Jardiance 10mg daily 5. The site of the pram 10mg daily 6. Furosemide 40mg daily 6. Losartan 50mg daily 7. Metoprolol 25mg daily 8. Spironolactone 25mg daily 9. Thiamine 1 tablet daily. She is not allergic to any medications. She does have ongoing history of 1. Alcoholism 2. Depression 3. Seizure disorder 4. Hyperlipidemia 5. Hypertension 6. Congestive heart 7. Coronary artery disease. 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 On initial eval in the emergency room her blood pressure was 157/106 respiration rate of 32, CBC was normal, BMP was normal, the potassium was borderline that is 3.3 mast scan was normal, CT scan of the head was negative for the bleed, EKG was normal with no atrial fibrillation, Review of Systems Review of Systems: All systems reviewed & are unremarkable except as noted in HPI and below PMFSH Past Medical History Medical History Hx of arterial ischemic stroke Alcoholism Depression Seizure at age 15yo Hyperlipidemia HTN (hypertension), benign CHF (congestive heart failure) Systolic CHF CAD (coronary artery disease) [place] in October 2024 Surgical History Surgical History H/O tubal ligation delivery delivered x3 Family History Family History Mother Cerebrovascular accident Social History Social History Social History: She smoked 1/2ppd x 30yrs but quit in 2023. No hx of drug use or IVDU. Occasional marijuana use i the past. Lives at home with her and 3 children. She has chickens, dogs and cats. Code status - full Surrogate decision maker - Maury (son) Smoking status: Never smoker Alcohol intake: former Substance use: never Lack of Transportation: No Lack of Food: Never True Current Housing: I Have Housing Concerned About Future Housing: No Difficulty Paying Gas/Electric Bills: No Difficulty Paying for Meds: No Currently Unemployed: No Education: High School Diploma/GED Difficulty w/ Childcare or Family Care: No Spiritual care concerns: No Meds Home Medications and Allergies Home Medications ?Medication ?Instructions ?Recorded ?Confirmed ?Type aspirin 81 mg chewable tablet 1 tablet PO DAILY 03/02/25 03/02/25 History atorvastatin 80 mg tablet 80 mg PO HS 03/02/25 03/02/25 History carvedilol 6.25 mg tablet 6.25 mg PO BID 03/02/25 03/02/25 History empagliflozin 10 mg tablet 10 mg PO DAILY 03/02/25 03/02/25 History (Jardiance) escitalopram oxalate 10 mg tablet 10 mg PO DAILY 03/02/25 03/02/25 History folic acid 1 mg tablet 1 mg PO DAILY 03/02/25 03/02/25 History furosemide 40 mg tablet 40 mg PO DAILY 03/02/25 03/02/25 History losartan 50 mg tablet 50 mg PO DAILY 03/02/25 03/02/25 History metoprolol succinate 25 mg 25 mg PO DAILY 03/02/25 03/02/25 History tablet,extended release 24 hr spironolactone 25 mg tablet 25 mg PO DAILY 03/02/25 03/02/25 History thiamine mononitrate (vit B1) 100 100 mg PO DAILY 03/02/25 03/02/25 History mg tablet (Vitamin B-1 (mononitrate)) Allergies Allergy/AdvReac Type Severity Reaction Status Date / Time No Known Allergies Allergy Verified 03/02/25 09:26 Vital Signs Vital Signs - 24 hr 03/02/25 11:16 03/02/25 11:38 03/02/25 12:00 Temperature 36.6 C Pulse Rate 113 H 96 96 Respiratory Rate 18 20 Blood Pressure 143/86 H Pulse Oximetry 97 96 Oxygen Delivery Room Air 03/02/25 14:00 03/02/25 15:51 03/02/25 16:00 Temperature 36.7 C Pulse Rate 89 94 98 Respiratory Rate 18 Blood Pressure 147/99 H Pulse Oximetry 96 Oxygen Delivery 03/02/25 20:00 03/02/25 20:00 03/02/25 20:45 Temperature 36.9 C Pulse Rate 91 92 95 Respiratory Rate 20 Blood Pressure 141/86 H Pulse Oximetry 98 Oxygen Delivery 03/02/25 22:00 03/03/25 00:00 03/03/25 00:00 Temperature 36.6 C Pulse Rate 85 87 82 Respiratory Rate 16 Blood Pressure 133/82 Pulse Oximetry 96 Oxygen Delivery 03/03/25 02:00 03/03/25 04:00 03/03/25 04:00 Temperature 36.6 C Pulse Rate 80 88 104 H Respiratory Rate 16 Blood Pressure 138/80 Pulse Oximetry 97 Oxygen Delivery 03/03/25 06:00 03/03/25 07:47 03/03/25 07:52 Temperature 36.7 C Pulse Rate 84 87 Respiratory Rate 12 Blood Pressure 142/92 H 142/92 H Pulse Oximetry 98 Oxygen Delivery Exam Narrative: Exam today reveals her to be awake alert oriented x3, his speech not dysphasic not dysarthric not dysphonic, she was able to ambulate independently, she was able to stand on heelss and her toes, around the stress was negative, head was normocephalic with no bruit, ear nose throat examination was normal, neck supple with no cervical bruits, heart regular with no murmur, lungs clear to auscultation with no rhonchi or crepitations, abdomen is soft nontender, neurological examination revealed her to be awake alert oriented, his speech not dysphasic not dysarthric not dysphonic, pupils round regular robin of vision full extraocular movements full facial sensation intact face symmetrical tongue midline motor examination revealed normal strength and tone in upper and lower extremities with symmetrical deep tendon reflexes downgoing plantar responses and no evidence of ataxia and dysmetria. Plantar responses were downgoing. Results Labs 03/02/25 05:29 03/03/25 10:45 Labs: BMP 03/03/25 03:37 Sodium 136 L Potassium 2.7 L* Chloride 99 Carbon Dioxide 31 H BUN 20 H D Creatinine 0.83 Glucose 102 Calcium 8.3 L Cardiac Enzymes 03/03/25 Range/Units 03:37 Total Creatine Kinase 289 H (30-135) U/L Liver Function 03/03/25 Range/Units 03:37 Total Bilirubin 0.4 (0.2-1.3) mg/dL AST 32 (14-36) U/L ALT 13 (6-35) U/L Alkaline Phosphatase 125 (38-126) U/L Albumin 3.6 (3.5-5.1) g/dL Urine 03/02/25 Range/Units 11:30 Urine Color Yellow (Yellow) Urine Appearance Clear (Clear) Urine pH 7.0 (5.0-9.0) Ur Specific [place] 1.018 (1.001-1.035) Urine Protein 2+ H (Negative) mg/dL Urine Glucose (UA) Negative (Negative) mg/dL
[2025-03-03 11:08] LABS: Magnesium 1.9 mg/dL (1.6-2.3); Potassium 3.4 mmol/L (3.4-5.0)
--- NOTE | 2025-03-03 13:25 | PM.DS ---
DS: Admitting Diagnosis Discharge Date 03/03/25 Admitting Diagnosis Anxiety DS: Discharge Diagnosis Discharge Diagnosis (1) Anxiety: Code(s): F41.9 - Anxiety disorder, unspecified Status: Acute (2) Alcoholism: Code(s): F10.20 - Alcohol dependence, uncomplicated Status: Acute (3) CHF (congestive heart failure): Code(s): I50.9 - Heart failure, unspecified Status: Acute (4) Depression: Code(s): F32.A - Depression, unspecified Status: Acute (5) HTN (hypertension), benign: Code(s): I10 - Essential (primary) hypertension Status: Acute (6) CAD (coronary artery disease): Code(s): I25.10 - Atherosclerotic heart disease of [place] coronary artery without angina pectoris Status: Acute (7) B12 deficiency: Code(s): E53.8 - Deficiency of other specified B group vitamins Status: Acute (8) Vitamin D deficiency: Code(s): E55.9 - Vitamin D deficiency, unspecified Status: Acute DS: Summary Hospital Course Reason for hospitalization: 50yo female with CAD, CHF and depression here for anxiety symptoms. Please see H&P for details. Hospital Course: In the ED, she was hypertensive at 157/106 that normalized quickly and tachycardia to 161 that also normalized. She was not febrile or hypoxic. CBC was normal. Potassium was 3.3, bicarb 21 with anion gap of 23. BUN normal but Cr slightly elevated at 1.13 (eGFR 51). AST 41 and total CK was 387. DDimer was normal. Lactic 8.1. Repeat lactate was 0.8. test negative. TSH normal. UDS positive for benzodiazepines but received this in the ED. Salicylates, acetaminophen and alcohol level negative. UA was not consistent with UTI. Head CT showing no acute findings. CXR was clear. EKG showing sinus tachycardia, LAFB and borderline ST-T wave changes in the high lateral leads. She was given IV fluid bolus x2. Also given valium 5mg x3 over about 90 minutes. B12 level and VitD level were low and these were replaced. She did denies intentional/unintentional drug overdose. She denied suicidal ideation. Consider panic attack. Consider serotonin syndrome but felt less likely. Consider related to alcohol withdrawal. Consider occult seizure. Neuro consult and recommended outpatient EEG. She was started on CIWA protocol but scores were low. Started thiamine and folate. She was educated about the benefits of abstaining from alcohol. Care coordination consulted to provide patient information about AA. She had clinical improvement. She was able to be discharged home on 03/03. Discharge instructions including medication side effects discussed. All questions answered. Status at Discharge Cognitive/behavioral status at discharge: stable Time Spent with Patient Time attestation: Total time spent providing and/or coordinating discharge services: 34 minutes Time spent: Greater than 30 minutes Exam Narrative: AF 98.1 122/97 97 14 98% ra Gen - NARD Chest - CTA bilaterally CV - RRR S1/S2. Tele showing PVCs Abd - soft, NT/ND Ext - no pedal edema Neuro - nonfocal Psych - normal mood and affect. Skin - warm and dry. DS: Data Data Completed and Pending Labs on day of discharge: Labs from last 24 hours 03/03/25 03/03/25 03/03/25 11:27 10:45 03:37 Sodium 136 L Potassium 3.4 2.7 L* Chloride 99 Carbon Dioxide 31 H Anion Gap 6 BUN 20 H D Creatinine 0.83 Estim Creat Clear Calc 57 Estimated GFR > 60 Glucose 102 POC Capillary Glucose 102 Calcium 8.3 L Phosphorus 3.7 Magnesium 1.9 1.8 Total Bilirubin 0.4 AST 32 ALT 13 Alkaline Phosphatase 125 Total Creatine Kinase 289 H Total Protein 6.2 L Albumin 3.6 Vitamin B12 Vitamin D 25-Hydroxy Folate Salicylates Acetaminophen Ethyl Alcohol 03/03/25 03/02/25 03/02/25 00:03 18:44 16:06 Sodium Potassium Chloride Carbon Dioxide Anion Gap BUN Creatinine Estim Creat Clear Calc Estimated GFR Glucose POC Capillary Glucose 110 H 132 H Calcium Phosphorus Magnesium Total Bilirubin AST ALT Alkaline Phosphatase Total Creatine Kinase Total Protein Albumin Vitamin B12 Vitamin D 25-Hydroxy Folate Salicylates Acetaminophen Ethyl Alcohol Cancelled 03/02/25 16:06 Sodium Potassium Chloride Carbon Dioxide Anion Gap BUN Creatinine Estim Creat Clear Calc Estimated GFR Glucose POC Capillary Glucose Calcium Phosphorus Magnesium Total Bilirubin AST ALT Alkaline Phosphatase Total Creatine Kinase Total Protein Albumin Vitamin B12 218.0 L Vitamin D 25-Hydroxy 17.8 Folate 12.5 Salicylates < 1.0 L Acetaminophen < 10 L Ethyl Alcohol < 10 Discharge Plan Discharge Attending physician on discharge: Orlin Jhaveri Consulting providers: Singh Diaz; Tiny Alexis Discharging Clinician: Orlin Jhaveri Anticipated Discharge Date/Time: 03/03/25 13:36 Patient Disposition: Home Activity: as tolerated Diet: heart healthy Discharge Instructions: Okay to resume your Paxil Stop all alcohol use. Be aware of products that may contain alcohol. Check blood pressure 1 to 2 times a day. Record and bring into your doctor for review. Call your doctor if your blood pressure is greater than 180/110. Take precautions to avoid falls. Rise slowly from a lying or sitting position. Pause before standing or walking. Check daily morning weights after voiding. Call your doctor if you gain more than 3 lb in 2 days or 5 lb in 1 week. Contact your doctor or call 911 and come to the Emergency Room if you have increasing shortness of breath or other worrisome symptoms. Avoid NSAIDs (ibuprofen, naproxen, Aleve). Tylenol is safe to take. Follow-up with your primary care provider in 1-2 weeks. Please call for appointment. Follow-up with Neurology in 3-4 weeks. Please call for appointment. Thank you for using [facility] for your health care needs. Patient Instructions: Antibiotic Form Patient Language: Stateless Stand Alone Forms: General Discharge Information Follow-up/Referrals: Mary,MD Todd [Primary Care Provider, Unknown] - Call for Appointment Tiny Alexis MD [Physician, Neurology] - Call for Appointment Discharge Medications: New cholecalciferol (vitamin D3) 25 mcg (1,000 unit) Tablet 25 mcg PO DAILY Qty: 30 1RF cyanocobalamin (vitamin B-12) [Vitamin B-12] 1,000 mcg Tablet 1,000 mcg PO QAM Qty: 30 1RF Continued losartan 50 mg tablet 50 mg PO DAILY furosemide 40 mg tablet 40 mg PO DAILY atorvastatin 80 mg tablet 80 mg PO HS carvedilol 6.25 mg tablet 6.25 mg PO BID spironolactone 25 mg tablet 25 mg PO DAILY aspirin 81 mg tablet,chewable 1 tablet PO DAILY folic acid 1 mg tablet 1 mg PO DAILY thiamine mononitrate (vit B1) [Vitamin B-1 (mononitrate)] 100 mg tablet 100 mg PO DAILY Jardiance 10 mg tablet 10 mg PO DAILY Discontinued metoprolol succinate 25 mg tablet extended release 24 hr 25 mg PO DAILY escitalopram oxalate 10 mg tablet 10 mg PO DAILY Other Ambulatory Orders: EEG (Routine) Timeframe: 1 Week Location: Determined by Patient Ordered By: Orlin Jhaveri Date of admission: 03/02/25 07:23 Primary Care Provider: Mary,Todd Admitting Provider: Orlin Jhaveri Attending physician on admission: Orlin Jhaveri Condition: Stable Hospitalist MIPS Heart Failure (Exclusion) Patient has history of Heart Transplant or Left Ventricular Assistive Device?: No IF YES, STOP HERE Heart Failure (Qualifier) Patient has current or prior documentation of LVEF less than or equal to 40%, or mod/servere depressed LVSF?: Yes IF NO, STOP HERE If Yes, Heart Failure (Qualifier) Patient was prescribed or already taking an Angiotensin-Converting Enzyme (STEFFEN) Inhibitor, or Antiotensin Receptor Isaiah (ARB): Yes Patient was prescribed or already taking bisoprolol, carvedilol, or sustained release metoprolol succinate: Yes
--- NOTE | 2025-03-09 07:53 | PC.NURSE ---
Blood cx show no growth. Dr.Farrar donis.
--- NOTE | 2025-03-25 07:16 | PC.NURSE ---
Blood cx are negative. Dr. Shakila donis.
== END 2025-03-03 14:11 | disposition home or self-care (01) ==
LOC: ANHED 05:43 → ANHIMU 09:05
PROVIDERS: Admitting Provider Internal Medicine; Emergency Provider Student in an Organized Health Care Education/Training Program; PCP Internal Medicine; Visit Provider Internal Medicine
DX: F41.8 Other specified anxiety disorders (principal); F10.20 Alcohol dependence, uncomplicated; I25.10 Atherosclerotic heart disease of native coronary artery without angina pectoris; I50.20 Unspecified systolic (congestive) heart failure; I11.0 Hypertensive heart disease with heart failure; R00.0 Tachycardia, unspecified; E78.5 Hyperlipidemia, unspecified; I44.4 Left anterior fascicular block; E53.8 Deficiency of other specified B group vitamins; E55.9 Vitamin D deficiency, unspecified; Z79.82 Long term (current) use of aspirin; Z79.84 Long term (current) use of oral hypoglycemic drugs; Z86.73 Personal history of transient ischemic attack (TIA), and cerebral infarction without residual deficits; Z87.891 Personal history of nicotine dependence; Z82.3 Family history of stroke
CPT/HCPCS: 36415; 70450; 71045; 80053; 80143; 80179; 80307; 81001; 82077; 82306; 82550; 82607; 82746; 82948; 83605; 83735; 83880; 84100; 84132; 84439; 84443; 84484; 84703; 85025; 85380; 87040; 93005; 96361; 96372; 96374; 96376; 99285; A9270; G0378; J3360; J3420; J3475; J7030